=== PATIENT | female | born 1950 | race Caucasian/White ===

== ENCOUNTER 2021-08-20 14:17 | Emergency (ER) | payer BC, MEDICAID ==
[~2021-08-20] VITALS: Ht 170.2 cm; Wt 90.9 kg
[2021-08-20 14:33] VITALS: BP 119/50
== END 2021-08-20 16:33 | disposition home or self-care (01) ==
LOC: ER 14:18
DX: U07.1 COVID-19 (principal); R06.00 Dyspnea, unspecified
CPT/HCPCS: 71045; 99283